=== PATIENT | male | born 1945 | race Hispanic/Latino ===

== ENCOUNTER 2018-08-08 14:40 | Inpatient (IN) | payer OTHER ==
[~2018-08-08] VITALS: Ht 162.6 cm; Wt 63.5 kg
[2018-08-08 15:15] LABS: BASOPHILS % (AUTO) 0.6 % (0.0-5.0); HEMATOCRIT 37.2 % (42-54); LYMPHOCYTES % (AUTO) 14.2 % (21.0-51.0); MEAN CORPUSCULAR HEMOGLOBIN 28.9 pg (27.0-33.0); MEAN CORPUSCULAR HGB CONC 33.5 g/dL (32.0-36.0); MEAN CORPUSCULAR VOLUME 86.2 fL (79-99); NEUTROPHILS % (AUTO) 70.2 % (40.0-77.0); PLATELET COUNT (AUTO) 243 K/uL (130-400); RED BLOOD CELL COUNT(AUTO) 4.31 MIL/uL (4.50-6.20); RED CELL DISTRIBUTION WIDTH 14.3 % (11.0-15.5)
[2018-08-08 15:28] LABS: CREATININE 1.6 mg/dL (0.5-1.5); POTASSIUM 4.5 mmol/L (3.5-5.1)
[2018-08-08] MEDS ORDERED: ASPIRIN 325 MG TABLET ONE (15:29)
[2018-08-08] MEDS ORDERED: NITROGLYCERIN 1GM/1 INCH PACKET TD ONE ×2 (15:29→20:08)
[2018-08-08 15:33] LABS: ALBUMIN 3.6 g/dL (3.5-5.0); BILIRUBIN,TOTAL 0.6 mg/dL (0.2-1.0); TOTAL PROTEIN, SERUM 6.9 g/dL (6.0-8.3)
[2018-08-08] MEDS ORDERED: ADENOSINE 3 MG/ML 2ML VIAL IV ONE (16:24)
[2018-08-08] MEDS ORDERED: METOPROLOL TARTRATE 1 MG/ML 5ML VIAL IV ONE (16:28)
[2018-08-08] MEDS ORDERED: NITROGLYCERIN 1GM/1 INCH PACKET TD SCH (16:30)
[2018-08-08] MEDS ORDERED: ONDANSETRON HCL 4 MG/2 ML VIAL IV PRN (16:30)
[2018-08-08] MEDS ORDERED: HYDRALAZINE HCL 20 MG/ML VIAL IV PRN (16:30)
[2018-08-08] MEDS ORDERED: LACTULOSE 20 GM/30 ML UDCUP PO PRN (16:30)
[2018-08-08] MEDS ORDERED: ACETAMINOPHEN 325 MG TAB PO PRN (16:30)
[2018-08-08] MEDS ORDERED: METOPROLOL TARTRATE 50 MG TAB ONE (16:37)
[2018-08-08 17:08] LABS: HEMOGLOBIN A1C 7.1 % (4.0-6.0)
[2018-08-08 17:21] LABS: THYROID STIMULATING HORMONE 1.08 uIU/mL (0.36-3.74); TROPONIN I 0.48 ng/mL (0.00-0.06)
[2018-08-08] MEDS ORDERED: DEXTROSE 50%-WATER 50 ML DISP.SYRIN IV PRN (17:45)
[2018-08-08] MEDS ORDERED: GLUCAGON 1MG KIT 1 MG ML IM PRN (17:45)
[2018-08-08 17:56] VITALS: BP 115/64
[2018-08-08] MEDS ORDERED: METO100T14 PO (17:59)
[2018-08-08] MEDS ORDERED: LISI-613 PO (17:59)
[2018-08-08] MEDS ORDERED: GLIP5TAB11 PO (17:59)
[2018-08-08] MEDS ORDERED: CLOP75TA32 PO (17:59)
[2018-08-08] MEDS ORDERED: TAMS-1 PO (19:29)
[2018-08-08] MEDS ORDERED: NITROGLYCERIN 0.4 MG SL TAB SL PRN (19:45)
[2018-08-08 20:03] VITALS: BP 140/79
[2018-08-08] MEDS: TAMSULOSIN HCL 0.4 MG CAP.ER.24H PO SCH ×2 (20:10→20:16)
[2018-08-08] MEDS: METOPROLOL TARTRATE 50 MG TAB PO SCH ×2 (20:10→20:17)
[2018-08-08] MEDS: INSULIN HUMULIN R 100 UNIT/ML 3ML SQ SCH (21:00)
[2018-08-08] MEDS ORDERED: METOPROLOL TARTRATE 25 MG TAB PO SCH (21:00)
[2018-08-08] MEDS: NITROGLYCERIN 1GM/1 INCH PACKET TD SCH (22:10)
[2018-08-08 23:38] VITALS: BP 117/63
[2018-08-09 01:08] LABS: TROPONIN I 0.42 ng/mL (0.00-0.06)
[2018-08-09 04:00] VITALS: BP 133/80
[2018-08-09] MEDS ORDERED: METOPROLOL TARTRATE 1 MG/ML 5ML VIAL IV SCH (04:45)
[2018-08-09] MEDS ORDERED: METOPROLOL TARTRATE 1 MG/ML 5ML VIAL IV ONE (04:47)
[2018-08-09 04:49] LABS: APPEARANCE,URINE Clear (CLEAR); BILIRUBIN,URINE Negative (NEGATIVE); COLOR,URINE Yellow (YELLOW); GLUCOSE, URINE (UA) Negative (NEGATIVE); KETONES,URINE Negative (NEGATIVE); LEUKOCYTE ESTERASE ,URINE Small (NEGATIVE); NITRATE,URINE Negative (NEGATIVE); OCCULT BLOOD,URINE Negative (NEGATIVE); PROTEIN,URINE Negative (NEGATIVE); UROBILINOGEN,URINE 0.2 mg/dL (0.2-1.0)
[2018-08-09] MEDS: NITROGLYCERIN 1GM/1 INCH PACKET TD SCH ×3 (04:50→22:01)
[2018-08-09 04:55] LABS: BACTERIA,URINE Rare /HPF (None Seen); RBC,URINE 0-1 /HPF (0-1)
[2018-08-09 04:56] LABS: AMPHET/METH SCREEN,URINE NEGATIVE (NEGATIVE); BARBITURATE SCREEN, URINE NEGATIVE (NEGATIVE); BENZODIAZEPINES SCREEN,URINE NEGATIVE (NEGATIVE); CANNABINOID SCREEN,URINE NEGATIVE (NEGATIVE); COCAINE SCREEN,URINE NEGATIVE (NEGATIVE); OPIATE SCREEN,URINE NEGATIVE (NEGATIVE); PHENCYCLIDINE SCREEN,URINE NEGATIVE (NEGATIVE)
[2018-08-09] MEDS ORDERED: ASPIRIN 325 MG TABLET ONE (05:00)
[2018-08-09] MEDS: ASPIRIN 325 MG TABLET PO SCH ×2 (05:01→05:07)
[2018-08-09 05:53] LABS: TROPONIN I 0.44 ng/mL (0.00-0.06)
[2018-08-09] MEDS: GLIPIZIDE 5 MG TABLET PO SCH ×2 (07:04→16:35)
[2018-08-09] MEDS: INSULIN HUMULIN R 100 UNIT/ML 3ML SQ SCH ×4 (07:05→19:36)
[2018-08-09 07:24] VITALS: BP 99/58
[2018-08-09] MEDS: LISINOPRIL 20 MG TABLET PO SCH (07:47)
[2018-08-09] MEDS: PANTOPRAZOLE SODIUM 40 MG TABLET.DR PO SCH (07:51)
[2018-08-09] MEDS: METOPROLOL TARTRATE 50 MG TAB PO SCH ×2 (07:51→19:35)
[2018-08-09] MEDS: CLOPIDOGREL BISULFATE 75 MG TAB PO SCH (07:51)
[2018-08-09] MEDS ORDERED: ENOXAPARIN SODIUM 40 MG/0.4 ML SYRINGE SQ SCH ×2 (09:00→10:30)
[2018-08-09 09:17] LABS: BASOPHILS % (AUTO) 0.6 % (0.0-5.0); EOSINOPHILS % (AUTO) 3.7 % (0.0-8.0); HEMATOCRIT 34.1 % (42-54); MEAN CORPUSCULAR HEMOGLOBIN 27.8 pg (27.0-33.0); MEAN CORPUSCULAR HGB CONC 32.4 g/dL (32.0-36.0); MEAN CORPUSCULAR VOLUME 85.8 fL (79-99); MONOCYTES % (AUTO) 5.8 % (3.0-13.0); NEUTROPHILS % (AUTO) 81.9 % (40.0-77.0); PLATELET COUNT (AUTO) 221 K/uL (130-400); RED BLOOD CELL COUNT(AUTO) 3.98 MIL/uL (4.50-6.20); RED CELL DISTRIBUTION WIDTH 14.3 % (11.0-15.5); WHITE BLOOD COUNT (AUTO) 7.4 K/uL (4.8-10.8)
[2018-08-09 09:37] LABS: TROPONIN I 0.41 ng/mL (0.00-0.06)
[2018-08-09 09:53] LABS: ALBUMIN 3.3 g/dL (3.5-5.0); BILIRUBIN,TOTAL 0.5 mg/dL (0.2-1.0); CREATININE 1.5 mg/dL (0.5-1.5); MAGNESIUM 1.9 mg/dL (1.80-2.40); TOTAL PROTEIN, SERUM 6.1 g/dL (6.0-8.3)
[2018-08-09] MEDS ORDERED: AMIODARONE HCL 200 MG TABLET PO SCH (10:15)
[2018-08-09] MEDS ORDERED: PHARMACY COMMUNICATION MISC SCH (10:15)
[2018-08-09 11:13] VITALS: BP 96/55
[2018-08-09] MEDS: AMIODARONE HCL 200 MG TABLET PO SCH ×2 (13:59→19:35)
[2018-08-09 16:25] VITALS: BP 122/50
[2018-08-09] MEDS ORDERED: NITROGLYCERIN 0.4 MG SL TAB SL ONE (16:42)
[2018-08-09] MEDS: TAMSULOSIN HCL 0.4 MG CAP.ER.24H PO SCH (19:35)
[2018-08-09 20:24] VITALS: BP 127/52
[2018-08-09 23:34] VITALS: BP 106/50
[2018-08-10 04:09] VITALS: BP 100/63
[2018-08-10] MEDS: NITROGLYCERIN 1GM/1 INCH PACKET TD SCH ×3 (06:04→21:53)
[2018-08-10] MEDS: GLIPIZIDE 5 MG TABLET PO SCH ×2 (06:04→16:31)
[2018-08-10] MEDS: INSULIN HUMULIN R 100 UNIT/ML 3ML SQ SCH ×4 (07:01→21:00)
[2018-08-10] MEDS: LISINOPRIL 20 MG TABLET PO SCH (07:34)
[2018-08-10] MEDS: AMIODARONE HCL 200 MG TABLET PO SCH ×3 (07:34→21:52)
[2018-08-10] MEDS: CLOPIDOGREL BISULFATE 75 MG TAB PO SCH (07:34)
[2018-08-10] MEDS: ASPIRIN 325 MG TABLET PO SCH (07:35)
[2018-08-10] MEDS: METOPROLOL TARTRATE 50 MG TAB PO SCH ×3 (07:35→21:52)
[2018-08-10] MEDS: PANTOPRAZOLE SODIUM 40 MG TABLET.DR PO SCH (07:35)
[2018-08-10 07:37] VITALS: BP 117/48
[2018-08-10] MEDS ORDERED: ENOXAPARIN SODIUM 60 MG/0.6 ML SQ SCH (09:00)
[2018-08-10 11:03] VITALS: BP 90/54
[2018-08-10] MEDS: REGADENOSON 0.4 MG/5 ML PF SYG IVP SCH ×2 (12:00→13:06)
[2018-08-10 16:27] VITALS: BP 101/55
[2018-08-10 20:03] VITALS: BP 121/61
[2018-08-10] MEDS ORDERED: ATORVASTATIN CALCIUM 10 MG TABLET PO SCH ×2 (21:00)
[2018-08-10] MEDS: TAMSULOSIN HCL 0.4 MG CAP.ER.24H PO SCH (21:52)
[2018-08-10 23:48] VITALS: BP 132/56
[2018-08-11 04:08] VITALS: BP 120/52
[2018-08-11 04:36] LABS: HEMATOCRIT 29.7 % (42-54); MEAN CORPUSCULAR HEMOGLOBIN 28.6 pg (27.0-33.0); MEAN CORPUSCULAR HGB CONC 33.6 g/dL (32.0-36.0); PLATELET COUNT (AUTO) 191 K/uL (130-400); RED BLOOD CELL COUNT(AUTO) 3.49 MIL/uL (4.50-6.20); RED CELL DISTRIBUTION WIDTH 14.3 % (11.0-15.5); WHITE BLOOD COUNT (AUTO) 5.9 K/uL (4.8-10.8)
[2018-08-11 04:46] LABS: INR 0.95 (0.85-1.15); PARTIAL THROMBOPLASTIN TIME 29.7 SEC (26.3-35.5); PROTHROMBIN TIME 9.8 SEC (9.6-11.6)
[2018-08-11] MEDS: NITROGLYCERIN 1GM/1 INCH PACKET TD SCH ×2 (06:16→14:00)
[2018-08-11] MEDS: INSULIN HUMULIN R 100 UNIT/ML 3ML SQ SCH ×2 (06:16→11:30)
[2018-08-11] MEDS: GLIPIZIDE 5 MG TABLET PO SCH (06:16)
[2018-08-11 07:50] LABS: CREATININE 1.8 mg/dL (0.5-1.5); POTASSIUM 4.4 mmol/L (3.5-5.1)
[2018-08-11 08:18] VITALS: BP 107/50
[2018-08-11 11:57] VITALS: BP 135/63
[2018-08-11] MEDS: AMIODARONE HCL 200 MG TABLET PO SCH ×2 (14:00→14:34)
[2018-08-11] MEDS: LISINOPRIL 20 MG TABLET PO SCH (14:34)
[2018-08-11] MEDS: CLOPIDOGREL BISULFATE 75 MG TAB PO SCH (14:34)
[2018-08-11] MEDS: PANTOPRAZOLE SODIUM 40 MG TABLET.DR PO SCH (14:34)
[2018-08-11] MEDS: METOPROLOL TARTRATE 50 MG TAB PO SCH (14:35)
[2018-08-11] MEDS ORDERED: APIXABAN 5 MG TABLET PO SCH (21:00)
== END 2018-08-11 17:40 | disposition home or self-care (01) | DRG 310 ==
LOC: EDH 14:40 → EDHIP 16:25 → 2DH 18:06
PROVIDERS: ADMIT Internal Medicine; ATTEND Internal Medicine
DX: I48.92 Unspecified atrial flutter (principal); I47.1 Supraventricular tachycardia; I48.0 Paroxysmal atrial fibrillation; I49.1 Atrial premature depolarization; I25.5 Ischemic cardiomyopathy; E11.22 Type 2 diabetes mellitus with diabetic chronic kidney disease; E78.5 Hyperlipidemia, unspecified; I12.9 Hypertensive chronic kidney disease with stage 1 through stage 4 chronic kidney disease, or unspecified chronic kidney disease; I49.3 Ventricular premature depolarization; N18.9 Chronic kidney disease, unspecified; Z95.1 Presence of aortocoronary bypass graft; Z79.84 Long term (current) use of oral hypoglycemic drugs
CPT/HCPCS: 36415; 71045; 78452; 80048; 80053; 80061; 80305; 81001; 82550; 82948; 83036; 83735; 83874; 84100; 84443; 84484; 85025; 85027; 85610; 85730; 93005; 93017; 93306; 96374; 99291; A9500; J0153; J1650; J2785; J3490